=== PATIENT | male | born 1955 | race Caucasian/White ===

== ENCOUNTER 2017-09-21 19:37 | Outpatient (CLI) | payer MEDICARE, MEDICAID | END 2017-09-22 07:15 | disposition home or self-care (01) | LOC: SLEEP 19:37 | PROVIDERS: ATTEND Family Medicine | DX: G47.33 Obstructive sleep apnea (adult) (pediatric) (principal) | CPT/HCPCS: 95811 ==

== ENCOUNTER 2019-07-21 14:29 | Emergency (ER) | payer MEDICARE, MEDICAID ==
[~2019-07-21] VITALS: Ht 182 cm; Wt 164.0 kg
[2019-07-21] MEDS ORDERED: ONDANSETRON 4 MG (ZOFRAN) ORAL DISSOLVE TAB SL STA (15:12)
[2019-07-21] MEDS ORDERED: KETOROLAC 60 MG/2 ML VIAL IM STA (15:12)
--- NOTE | 2019-07-21 15:13 | ED Hip Pain/Injury ---
General Chief Complaint: Hip/Pelvic Problems Stated Complaint: HIP AND STOMACH PAIN Nursing Triage Note: PT STATES RT HIP AND LOW BACK PAIN. HAS BEEN SEEN BY DR. James ALMARAZ FOR THIS. IS TAKING HYDROCODONE, STATES HE HAS NOT HAD A BM FOR SEVERAL DAYS. STATES HE DID TRIP AND FALL ABOUT 2 WEEKS AGO. PT AMBULATED TO RM 7 WITH A WALKER. Source: patient Exam Limitations: no limitations History of Present Illness Date Seen by Provider: Jul 21, 2019 Time Seen by Provider: 15:06 Initial Comments Here with report of low back pain and right hip pain after fall several weeks ago with a fall again after that. After the first fall back pain started and persisted. After the second fall, the hip pain began. He is walking with the use of a walker. He is taking hydrocodone daily. He is also meloxicam or ibuprofen. Has had nausea but no vomiting recently. He does complain of constipation. Timing/Duration: changing over time Severity: moderate Location: hip (R), other (low back) Method of Injury: other (fall) Modifying Factors: Worse With Movement; Improves With Rest Associated Symptoms: No fatigue, No fever, No groin pain, No lumps, No muscle aches, No pain radiating to knees Allergies and Home Medications Allergies Coded Allergies: No Known Drug Allergies (Unverified , 07/21/19) Patient Home Medication List Home Medication List Reviewed: Yes (reviewed intermediate med list) Review of Systems Constitutional: see HPI; No chills, No fever EENTM: no symptoms reported Respiratory: no symptoms reported Cardiovascular: no symptoms reported Gastrointestinal: see HPI; No diarrhea; nausea, vomiting Genitourinary: no symptoms reported Musculoskeletal: back pain, joint pain, muscle pain Skin: no symptoms reported Psychiatric/Neurological: No Symptoms Reported All Other Systems Reviewed Negative Unless Noted: Yes Past Vulqezp-Ddlndj-Juwayc Hx Past Med/Social Hx: Reviewed Nursing Past Med/Soc Hx Patient Social History Alcohol Use: Denies Use Recreational Drug Use: No Smoking Status: Former Smoker Type Used: Cigarettes Former Smoker, Quit: Jun 24, 1989 Recent Foreign Travel: No Contact w/Someone Who Travel: No Recent Infectious Disease Expo: No Recent Hopitalizations: No Physical Abuse: No Sexual Abuse: No Mistreated: No Fear: No Immunizations Up To Date Date of Influenza Vaccine: May 24, 2019 Seasonal Allergies Seasonal Allergies: No Past Medical History Surgeries: Yes (RT HIP, NOSE, TUBES IN EARS) Appendectomy, Orthopedic Respiratory: No Cardiac: Yes High Cholesterol, Hypertension Neurological: Yes Neuropathy Genitourinary: Yes (OVERACTIVE BLADDER) Gastrointestinal: Yes Gastroesophageal Reflux Musculoskeletal: Yes (WALKER FOR BALANCE) Chronic Back Pain Endocrine: Yes Diabetes, Non-Insulin dep HEENT: No Cancer: Yes Prostate, Skin Integumentary: No Family Medical History Reviewed Nursing Family Hx No Pertinent Family Hx Physical Exam Vital Signs Vital Signs - First Documented 07/21/19 14:40 Temp 36.6 Pulse 74 Resp 20 B/P (MAP) 130/73 (92) Pulse Ox 98 O2 Delivery Room Air Capillary Refill : Less Than 3 Seconds Height, Weight, BMI Height: '" Weight: lbs. oz. kg; 49.00 BMI Method: General Appearance: No Apparent Distress, WD/WN Neck: Non Tender, Supple Cardiovascular: Regular Rate, Rhythm, No Murmur Respiratory: Lungs Clear, Normal Breath Sounds Gastrointestinal: Non Tender, Soft Back: No CVA Tenderness, Vertebral Tenderness (upper lumbar region.) Extremity: Normal Range of Motion, No Calf Tenderness Neurologic/Psychiatric: Alert, Oriented x3 Skin: Normal Color, Warm/Dry Progress/Results/Core Measures Results/Orders Lab Results Laboratory Tests Test 07/21/19 15:45 Range/Units Urine Color YELLOW Urine Clarity CLEAR Urine pH 7.0 5-9 Urine Specific Champion 1.015 L 1.016-1.022 Urine Protein NEGATIVE NEGATIVE Urine Glucose (UA) NEGATIVE NEGATIVE Urine Ketones TRACE H NEGATIVE Urine Nitrite NEGATIVE NEGATIVE Urine Bilirubin NEGATIVE NEGATIVE Urine Urobilinogen 1.0 < = 1.0 MG/DL Urine Leukocyte Esterase TRACE NEGATIVE Urine RBC (Auto) NEGATIVE NEGATIVE Urine RBC 0-2 /HPF Urine WBC 10-25 H /HPF Urine Crystals NONE /LPF Urine Bacteria TRACE /HPF Urine Casts NONE /LPF Urine Mucus NEGATIVE /LPF Urine Culture Indicated YES My Orders Orders - BLAYNE NASH MD Lumbar Spine - 2-3 Views (07/21/19 15:01) Acute Abd Series (07/21/19 15:01) Pelvis With Right Hip 2-3views (07/21/19 15:01) Ondansetron Oral Dissolve Tab (Zofran (07/21/19 15:12) Ketorolac Injection (Toradol Injection) (07/21/19 15:12) Ua Culture If Indicated (07/21/19 15:42) Urine Culture (07/21/19 15:45) Cephalexin Capsule (Keflex Capsule) (07/21/19 16:11) Hydrocodone/Apap 5/325 Tablet (Lortab 5 (07/21/19 16:15) Vital Signs/I&O 07/21/19 07/21/19 14:40 15:31 Temp 36.6 36.6 Pulse 74 Resp 20 B/P (MAP) 130/73 (92) Pulse Ox 98 O2 Delivery Room Air Blood Pressure Mean: 92 POS Progress Progress Note : Progress Note Seen and evaluated. Acute abdominal series x-ray, right hip and pelvis x-ray and lumbar spine x-ray is ordered. Toradol 60 mg IM. Zofran 4 mg by mouth. Monitor patient. 1545: We will send urine sample and patient was able to provide sample. Monitor patient. 1620: UA complete. Cephalexin 500 mg by mouth. Hydrocodone one tab by mouth given. Patient does have compression fracture at T12/L1 which would account for his pain. He will need an increase of his pain medicine for a few days. I will send a copy of the chart to Dr. Guzman for 5 days of increased hydrocodone. We will also initiate MiraLAX while he is doing this to help with constipation issues. Discharged home with return precautions. Patient verbalize understanding instructions and agreement with plan. Departure Impression Primary Impression: Compression fx, lumbar spine Qualified Codes: S32.010A - Wedge compression fracture of first lumbar vertebra, initial encounter for closed fracture Additional Impressions: Compression fx, thoracic spine Qualified Codes: S22.080A - Wedge compression fracture of t11-T12 vertebra, initial encounter for closed fracture Urinary tract infection Qualified Codes: N30.00 - Acute cystitis without hematuria Disposition: 01 HOME, SELF-CARE Condition: Stable Departure-Patient Inst. Decision time for Depature: 16:26 Referrals: SHAHRAM ALMARAZ MD (PCP/Family) Primary Care Physician Patient Instructions: Vertebral Compression Fracture (DC), Urinary Tract Infection, Adult (DC) Add. Discharge Instructions: All discharge instructions reviewed with patient and/or family. Voiced understanding. You may use the MiraLAX 1 packet full daily to keep stools soft. Do not take if you are having loose stools. You may increase your hydrocodone to 1 tablet 3 times a day. You should follow-up with Dr. Almaraz for recheck and further evaluation. You do have a urinary tract infection. You need to drink plenty of fluids. Return for worse pain, fever, vomiting, weakness, breathing problems or other concerns as needed. Scripts Polyethylene Glycol 3350 (Miralax) 17 Gm Powd.pack 17 GM PO DAILY, #30 EACH Do not take if you have loose stools Prov: BLAYNE NASH MD 07/21/19 Hydrocodone Bit/Acetaminophen (Hydrocodone/Acetaminophen 5/325mg Tablet) 1 Tab Tab 1 EACH PO Q8H PRN for PAIN-MODERATE MDD 10 for 5 Days, #15 TAB 0 Refills Prov: BLAYNE NASH MD 07/21/19 Cephalexin (Cephalexin) 500 Mg Tablet 500 MG PO BID, #10 TAB 0 Refills Prov: BLAYNE NASH MD 07/21/19 Copy Copies To 1: SHAHRAM ALMARAZ MD, TIMOTHY D MD Jul 21, 2019 15:13 POS
--- NOTE | 2019-07-21 15:38 | Diagnostic Imaging Report ---
EXAMINATION: Abdominal series and chest radiograph. HISTORY: Fall. COMPARISON: None available. FINDINGS: No dilated bowel is seen. No free air. Gas pattern is normal. The lungs are clear. No edema. No pneumonia. No pleural effusion. No pneumothorax. Heart is normal in size. IMPRESSION: 1. Clear lungs. 2. Normal bowel gas pattern. Dictated by: Dictated on workstation # [id number]
--- NOTE | 2019-07-21 15:39 | Diagnostic Imaging Report ---
EXAM: Lumbar spine - 2-3 views. INDICATION: Low back pain. COMPARISON: None. FINDINGS: There are 5 lumbar-type vertebral bodies. Age indeterminate superior endplate compression deformities of T12 and L1 resulting in approximately 20% height loss at both levels. Moderate diffuse degenerative endplate changes and facet arthropathy. Visualized pelvis is intact. There are advanced degenerative changes in the left hip. IMPRESSION: 1. Age-indeterminate compression fractures of T12 and L1. This could be better characterized with MRI. 2. Moderate diffuse spondylotic changes. 3. Advanced degenerative changes in the left hip are partially visualized. Dictated by: Dictated on workstation # [id number]
--- NOTE | 2019-07-21 15:43 | Diagnostic Imaging Report ---
EXAM: Pelvis with right hip 2-3 views. INDICATION: Fall. Right hip pain. Back pain. COMPARISON: None. FINDINGS: There are advanced degenerative changes in the left hip, moderate on the right. No fracture or malalignment. Moderate degenerative changes in the lumbar spine. Benign enchondroma in the proximal right femoral diaphysis. Metallic fiducials in the pelvis. IMPRESSION: 1. No acute radiographic findings in the pelvis or right hip. 2. Advanced degenerative changes in the left hip, moderate on the right. Dictated by: Dictated on workstation # [id number]
[2019-07-21 15:51] LABS: BILIRUBIN,URINE NEGATIVE (NEGATIVE); CLARITY,URINE CLEAR; COLOR,URINE YELLOW; GLUCOSE, URINE (UA) NEGATIVE (NEGATIVE); KETONES,URINE TRACE (NEGATIVE); LEUKOCYTE ESTERASE ,URINE TRACE (NEGATIVE); NITRITE,URINE NEGATIVE (NEGATIVE); PROTEIN,URINE NEGATIVE (NEGATIVE)
[2019-07-21 15:57] LABS: RBC,URINE 0-2 /HPF
[2019-07-21 15:58] LABS: BACTERIA,URINE TRACE /HPF
[2019-07-21] MEDS ORDERED: CEPHALEXIN 250 MG (KEFLEX) CAP PO STA (16:11)
[2019-07-21] MEDS ORDERED: HYDROcodone/APAP 5 MG/325 MG (LORTAB) TAB PO ONE (16:15)
[2019-07-21] MEDS ORDERED: CEPH500T PO (16:31)
[2019-07-21] MEDS ORDERED: ACHD5005 PO (16:31)
[2019-07-21] MEDS ORDERED: POLY17PO6 PO (16:31)
[2019-07-21 16:40] VITALS: BP 121/54
--- NOTE | 2019-07-22 09:23 | NUR ---
[facility] CALLED AND WANTED LAB RESULTS OF UA SINCE HE WAS PUT ON ANTIBIOTIC.
== END 2019-07-21 16:40 | disposition home or self-care (01) ==
LOC: EDUNIT# 14:29 → ER 14:30
DX: S32.010A Wedge compression fracture of first lumbar vertebra, initial encounter for closed fracture (principal); S22.080A Wedge compression fracture of T11-T12 vertebra, initial encounter for closed fracture; N39.0 Urinary tract infection, site not specified; I10 Essential (primary) hypertension; E78.00 Pure hypercholesterolemia, unspecified; E11.40 Type 2 diabetes mellitus with diabetic neuropathy, unspecified; K21.9 Gastro-esophageal reflux disease without esophagitis; Z85.828 Personal history of other malignant neoplasm of skin; Z85.46 Personal history of malignant neoplasm of prostate; Z90.49 Acquired absence of other specified parts of digestive tract; Z87.891 Personal history of nicotine dependence; W19.XXXA Unspecified fall, initial encounter
CPT/HCPCS: 72100; 74022; 81000; 87088; 96372

== ENCOUNTER 2019-12-01 09:15 | Outpatient (RCR) | payer MEDICARE, MEDICAID ==
--- NOTE | 2019-10-12 14:32 | Consultation ---
History of Present Illness History of Present Illness Patient Consulted On(enma/time) 10/12/19 1000 Date Seen by Provider: Oct 12, 2019 Time Seen by Provider: 10:00 Reason for Visit: Pain palliation History of Present Illness *Mr. Padilla is a 63 y/o white male [place], [place] resident who presented to [facility] ED on 10/11/19 with intractable back pain.He reports pain since June 2019 after a fall and was in the ER on for right hip and low back pain. Lumbar plain films at that time noted age-indeterminate compression fractures of T12 and L1. Pain is across low back with left side > right side without radicular component. Laying flat is the only position that helps with pain. His PCP Dr. Karsten Glynn has been managing his pain regimen with Fentanyl 50 mcg patch, hydrocodone 10 mg every 12 hours prn and Toradol injections along with PO Nsaids. -10/11/19 CT thoracic/lumbar spine wo: (1) Multifocal metastatic disease is present throughout the thoracic and lumbar spien. (2) This is greatest at L1 where there is a mixed lytic and sclerotic appearance of the vertebral body with a probable pathologic fracture. There may be soft tissue extension from the L1 vertebral body into the epidural space resulting in spinal stenosis. - He was admitted for pain control with a radiation oncology consult placed. * The patient was diagnosed with [id number], PSA 5.41, [place] 5+4=9/10 prostate cancer in January 2016. He received definitive IMRT/IGRT ebrt to the limited pelvis and prostate (70.2 Gy / 39 fxs) between the dates of 05/05/16 and 06/30/16 at [facility] under the care of Dr. Ugo Ryan. He was initiated on ADT injections after completion of ebrt for possibly 6 months. PSA was0.8 on 04/03/17. * The next PSA documented was 6.19 drawn on 09/29/17. Six months later on 03/30/18 it was up to 10.84. * Fall 2017 hormone therapy was re-initiated (Lupron injections and Erleada 60 mg (4 tabs PO daily) by urologist, Dr. Rell De La Garza, at [facility] in [place]. PSA down to 0.14 on 08/05/18. * 12/02/18 PSA 1.54 then up to 4.89 on 03/25/19. * Dr. Ryan ordered a PET Axumin scan that was performed 04/26/19 at [facility] in [place], [place]. - Study noted focal uptake in the right posterolateral prostate fossa consistent with local recurrence. While metastatic disease is not identified, the study is severely limited in technical quality (patient arrived 1 hr late which resulted in a lower than desired radiopharmaceutical dose; along with the patient's body size). Additional assessment is recommended. * On f/u with Dr. Ryan 05/12/19 No further radiation to the previously radiated prostate tissue was recommended. It was suggested the patient see a medical oncologist for consideration of a clinical trial or for systemic therapy control. The patient states no one every contacted him with an appointment. Allergies and Home Medications Allergies Coded Allergies: No Known Drug Allergies (Unverified , 07/21/19) Home Medications Acetaminophen 325 Mg Tablet, 325-650 MG PO TID PRN for DISCOMFORT, (Reported) Albuterol Sulfate 1 Puff Puff, 2 PUFF IH Q6H PRN for SHORTNESS OF BREATH, (Reported) 1 PUFF = 90 MCG Allopurinol 300 Mg Tablet, 300 MG PO DAILY, (Reported) Amlodipine Besylate 10 Mg Tablet, 10 MG PO DAILY, (Reported) Apalutamide 60 Mg Tablet, 240 MG PO DAILY, (Reported) TAKES 4 (60MG) TABS DAILY Aspirin 81 Mg Tablet.dr, 81 MG PO DAILY, (Reported) Aspirin/Sod Bicarb/Citric Acid 1 Each Tablet.eff, 2 EACH PO Q4H PRN for HEARTBURN, (Reported) DISSOLVE 2 TABS IN 4 OUNCES OF WATER Budesonide/Formoterol Fumarate 10.2 Gm Hfa.aer.ad, 2 PUFF PO BID, (Reported) Carboxymethylcellulose Sodium 15 Ml Drp.lq.gel, 15 DROP OU BID, (Reported) Diclofenac Sodium 100 Gm Gel..gram., 2 GM TD BID, (Reported) APPLY TO BACK Fentanyl 1 Each Patch.td72, 50 MCG TD Q72H, (Reported) PATCH APPLIED 10-08-2019 Gabapentin 300 Mg Capsule, 300 MG PO TID, (Reported) Hydrochlorothiazide 12.5 Mg Capsule, 12.5 MG PO DAILY, (Reported) Hydrocodone/Acetaminophen 1 Each Tablet, 1 TAB PO Q12H PRN for PAIN-MODERATE (5- 7), (Reported) Ibuprofen 800 Mg Tablet, 800 MG PO DAILY PRN for PAIN-MILD (1-4), (Reported) Loperamide HCl 2 Mg Capsule, 2 MG PO QID PRN for DIARRHEA, (Reported) Lorazepam 1 Mg Tablet, 1 MG PO BID PRN for ANXIETY, (Reported) Losartan Potassium 100 Mg Tablet, 100 MG PO DAILY, (Reported) Lovastatin 20 Mg Tablet, 20 MG PO DAILY, (Reported) Meloxicam 15 Mg Tablet, 15 MG PO DAILY, (Reported) Metformin HCl 500 Mg Tablet, 1,000 MG PO BID, (Reported) TAKES 2 (500MG) TABS Metoclopramide HCl 5 Mg Tablet, 5 MG PO BID PRN for NAUSEA/VOMITING-3RD LINE, (Reported) Omeprazole 20 Mg Capsule.dr, 20 MG PO BID, (Reported) Ondansetron HCl 4 Mg Tablet, 4 MG PO Q6H PRN for NAUSEA/VOMITING-1ST LINE, (Reported) Oxybutynin Chloride 5 Mg Tablet, 5 MG PO BID, (Reported) Polyethylene Glycol 3350 17 Gm Powd.pack, 17 GM PO DAILY PRN for CONSTIPATION- 2ND LINE, (Reported) Quetiapine Fumarate 25 Mg Tablet, 25 MG PO HS, (Reported) Tolterodine Tartrate 4 Mg Cap.er.24h, 4 MG PO DAILY, (Reported) Patient Home Medication List Home Medication List Reviewed: Yes Past Zlxgjzf-Jroloz-Tkajkc Hx Patient Social History Alcohol Use: Denies Use Recreational Drug Use: No Type Used: Cigarettes Former Smoker, Quit: Jun 24, 1989 Recent Foreign Travel: No Contact w/Someone Who Travel: No Recent Hopitalizations: No Immunizations Up To Date Date of Influenza Vaccine: May 24, 2019 Seasonal Allergies Seasonal Allergies: No Past Medical History Surgeries: Yes (RT HIP, NOSE, TUBES IN EARS) Amputation (2nd toe on right foot November 2012), Appendectomy, Bowel Surgery (colonoscopy 07/08/20 ), Ear Surgery (ear tubes x 3), 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), Orthopedic (right hip art hroplasty), Prostatectomy (Prostate biopsy 02/14/16), Tonsillectomy (1966) Respiratory: No Sleep Apnea Cardiac: Yes High Cholesterol, Hypertension Neurological: Yes Neuropathy Genitourinary: Yes (OVERACTIVE BLADDER) Benign Prostatic Hyperpl, Prostate Problems Gastrointestinal: Yes Gastroesophageal Reflux Musculoskeletal: Yes (WALKER FOR BALANCE) Chronic Back Pain Endocrine: Yes Diabetes, Non-Insulin dep HEENT: No Cancer: Yes Prostate, Skin (Nasal cartilage) Did You Recieve Any Treatments: Yes (Prostate 70.2 Gy / 39 fxs in 2016 --- Nasal 1993) What Type of Treatment Did You: Radiation, Surgical Intervention Integumentary: No Family Medical History No Pertinent Family Hx Review of Systems-General Constitutional: weakness, weight loss EENTM: no symptoms reported, other (wears glasses) Respiratory: no symptoms reported Cardiovascular: edema (bilateral LLE) Gastrointestinal: nausea (dry heaves), other (reports control of bowels) Genitourinary: frequency, other (overactive bladder symptoms; reports has control of bladder) Musculoskeletal: back pain, gout, joint pain Skin: dryness Psychiatric/Neurological: Depressed, Other (denies numbness, tingling or wea kness of extremities) Physical Exam-General Problems Physical Exam Vital Signs Capillary Refill : General Appearance: moderate distress, obese Eyes: Bilateral Eye PERRL, Bilateral Eye EOMI Neck: full range of motion Respiratory: no respiratory distress Cardiovascular: other (bilateral LLE with pretibial bronzing) Rectal: deferred Back: vertebral tenderness (lumbar spine) Neurologic/Psychiatric: room attendant II-XII nml as tested, no motor/sensory deficits, alert, normal mood/affect, oriented x 3 Skin: warm/dry, pallor Assessment/Plan Assessment/Plan Admission Diagnosis/Plan ASSESSMENT: -Intractable lower back pain -Prostate cancer with bone metastases -on ADT with Lupron and Erleada since fall 2017 (last PSA noted was 4.87 on 03/03/19) -initially diagnosed with pT2b [place] 9/10 prostate cancer in 2016 -received 70.2 Gy / 39 fxs to limited pelvis and prostate followed by short course ADT RECOMMENDATIONS/PLAN: -The patient was offered a 2 - 2.5 week course of xrt to the lumbar spine in an attempt to palliate his pain and stop further tumor destruction. -We would attempt to deliver 30 - 39 Gy / 10-13 fxs utilizing standard radiation treatment technique. -The acute toxicities, complications, logistics and hoped for benefits were explained in detail to the patient. -He did wish to proceed. -A treatment planning ct simulation to be performed today. -We will initiate his course of palliative lumbar spine xrt tomorrow. -PSA draw today. -Medical oncologist, Dr. Manuela Lopez, has been contacted with regards to further treatment management. He plans on seeing the patient 10/13/19. Reason for Inpatient Admission: Intractable lower back pain JAVIER PADILLA MD Oct 12, 2019 14:32
[~2019-12-01 09:15] MED LIST changes: -HYDR-3820 PO; -HYDR12.56 PO
[2019-12-01 09:57] LABS: BASOPHILS % (AUTO) 0 % (0-10); EOSINOPHILS % (AUTO) 0 % (0-10); HEMATOCRIT 44 % (40-54); HEMOGLOBIN 14.7 G/DL (13.3-17.7); LYMPHOCYTES # (AUTO) 0.4 X 10^3 (1.0-4.0); LYMPHOCYTES % (AUTO) 5 % (12-44); MEAN CORPUSCULAR HEMOGLOBIN 27 PG (25-34); MEAN CORPUSCULAR HGB CONC 34 G/DL (32-36); MEAN CORPUSCULAR VOLUME 81 FL (80-99); MONOCYTES # (AUTO) 0.4 X 10^3 (0.0-1.0); MONOCYTES % (AUTO) 5 % (0-12); NEUTROPHILS # (AUTO) 7.6 X 10^3 (1.8-7.8); NEUTROPHILS % (AUTO) 90 % (42-75); PLATELET COUNT 175 10^3/uL (130-400); RED CELL DISTRIBUTION WIDTH 21.6 % (10.0-14.5); WHITE BLOOD COUNT 8.4 10^3/uL (4.3-11.0)
[2019-12-01 10:10] LABS: ALBUMIN 3.8 GM/DL (3.2-4.5)
[2019-12-01 10:12] LABS: CALCIUM 9.1 MG/DL (8.5-10.1)
[2019-12-01 10:13] LABS: TOTAL PROTEIN 7.5 GM/DL (6.4-8.2)
[2019-12-01 10:15] LABS: BILIRUBIN,TOTAL 1.3 MG/DL (0.1-1.0)
[2019-12-01 10:16] LABS: CREATININE SERUM 2.61 MG/DL (0.60-1.30)
[2019-12-01] MEDS ORDERED: HYDROcodone/APAP 10 MG/325 MG (LORTAB) TAB PO ONE (10:33)
[2019-12-01] MEDS ORDERED: POTASSIUM CHL INJ (CANCER CTR) 20 MEQ in NS IV 1000 ML (CANCER CTR) 1,000 ML IV ONE (11:26)
[2019-12-01] MEDS ORDERED: MAGNESIUM SULFATE (CANCER CTR) 3 GM in NS (IVPB) CANCER CENTER 100 ML IV ONE (12:32)
[2019-12-02] MEDS ORDERED: HYDR12.56 PO (09:47)
[2019-12-02] MEDS ORDERED: HYDR-3820 PO (09:47)
[2019-12-02] MEDS ORDERED: FENT1PAT11 TD (10:10)
== END 2020-01-16 | disposition home or self-care (01) ==
LOC: ONC 09:15
PROVIDERS: ATTEND Internal Medicine Hematology & Oncology
DX: Z51.0 Encounter for antineoplastic radiation therapy (principal); C61 Malignant neoplasm of prostate; C79.51 Secondary malignant neoplasm of bone
CPT/HCPCS: 77336; 77385; 77417; 80053; 83735; 84153; 85025

== ENCOUNTER → 2019-12-01 | Outpatient (CLI) | payer MEDICARE, MEDICAID ==
[~2019-12-01] MED LIST: ACET325T38 PO; ACHD5005 PO; ACHYD1T PO; ALLO300T2 PO; AMLO10TA7 PO; APAL60TA PO; ASPI-920 PO; ASPI-983 PO; BUDE10.2 PO; CARB15DR3 OU; CEPH500T PO; DICL100G31 TD; FENT1PAT11 TD; FENT1PAT9 TD; FENTANYL PATCH; GABA-488 PO; HYDR-3820 PO; HYDR12.5 PO; HYDR12.56 PO; IBUP-1780 PO; LOPE2CAP PO; LORA-405; LORA-405 PO; LOSA100T57 PO; LOVA20TA2 PO; MELO15TA39 PO; METF-397 PO; METO5TAB2 PO; OMEP20CA18 PO; ONDA-105 PO; OXYB5TAB13 PO; POLY17PO6 PO; QUET25TA73 PO; RT-ALBUINH IH; TOLT4CAP13 PO
--- NOTE | 2019-12-01 15:29 | Diagnostic Imaging Report ---
PROCEDURE: US Renal Bilateral. TECHNIQUE: Multiple real-time grayscale images were obtained over the kidneys in various projections bilaterally. INDICATION: Diminished GFR. COMPARISON: None. FINDINGS: Both kidneys are normal in size and echogenicity. The right kidney measures 11.3 cm in length and the left is 10.5 cm. The cortical thickness and the cortical medullary differentiation is well maintained. There is no evidence of calculi, focal mass or hydronephrosis. Limited views of the pelvis demonstrate moderately distended urinary bladder. No large intraluminal masses or calculi are present. Ureteral jets cannot be demonstrated on either side. There is no ascites. IMPRESSION: Non-demonstrable ureteral jets bilaterally. Otherwise, unremarkable renal sonogram. Dictated by: Dictated on workstation # [id number]
== END ==
LOC: RAD 13:50
PROVIDERS: ATTEND Nurse Practitioner Adult Health
DX: R94.4 Abnormal results of kidney function studies (principal); Z96.0 Presence of urogenital implants
CPT/HCPCS: 76770